=== PATIENT | male | born 1930 | race Caucasian/White ===

== ENCOUNTER 2017-08-12 10:01 | Day surgery (SDC) | payer MEDICARE ==
[~2017-08-12] VITALS: Ht 172.7 cm; Wt 90.9 kg
[2017-08-12] MEDS ORDERED: GLUC100017 PO (10:21)
[2017-08-12] MEDS ORDERED: AMIO200T57 PO (10:21)
[2017-08-12] MEDS ORDERED: VIT1CAPS46 (10:21)
[2017-08-12] MEDS ORDERED: CYAN1TAB41 PO (10:21)
[2017-08-12] MEDS ORDERED: MULT1TAB74 PO (10:21)
[2017-08-12] MEDS ORDERED: CHOL10002 PO (10:21)
[2017-08-12 10:54] VITALS: BP 142/78
[2017-08-12] MEDS ORDERED: MIDAZolam 1mg/ml 10ml vial ONE (11:07)
[2017-08-12] MEDS ORDERED: fentaNYL/PF 50MCG/1 ML 2ML syringe ONE (11:07)
[2017-08-12 12:19] VITALS: BP 137/61
[2017-08-12 12:29] VITALS: BP 140/69
[2017-08-12 12:39] VITALS: BP 132/68
== END 2017-08-12 13:05 | disposition home or self-care (01) ==
LOC: GI LAB 10:01
PROVIDERS: ATTEND Specialist
DX: Z09 Encounter for follow-up examination after completed treatment for conditions other than malignant neoplasm (principal); D12.2 Benign neoplasm of ascending colon; D12.0 Benign neoplasm of cecum; D12.4 Benign neoplasm of descending colon; Z86.010 Personal history of colon polyps; Z98.890 Other specified postprocedural states; Z79.899 Other long term (current) drug therapy
CPT/HCPCS: 45380; 45385; 99153; G0500; J2250; J3010; J7030; 88305; A4620